=== PATIENT | female | born 1945 | race Caucasian/White ===

== ENCOUNTER 2018-09-30 05:50 | Inpatient (IN) | payer OTHER ==
[2018-09-30] MEDS ORDERED: ONDANSETRON 4 MG INJ IV (07:00)
[2018-09-30] MEDS ORDERED: NACL 0.9% 3 ML SYG IV (07:00)
[2018-09-30 07:46] LABS: ADD MAN DIFF? NO
[2018-09-30 07:52] LABS: WHITE BLOOD COUNT 6.7 10^3/ul (4.8-10.8)
[2018-09-30 07:52] LABS: BASOPHIL # 0.1 10^3/ul (0.0-0.1); BASOPHILS % 1.5 % (0.0-2.0); EOSINOPHILS # 0.5 10^3/ul (0.0-0.5); EOSINOPHILS % 7.6 % (0.0-7.0); HEMATOCRIT 36.5 % (37.0-47.0); HEMOGLOBIN 12.1 g/dl (12.0-16.0); LYMPHOCYTES # 1.8 10^3/ul (0.8-2.9); LYMPHOCYTES % 26.6 % (15.0-51.0); MEAN CORPUSCULAR HEMOGLOBIN 29.1 pg (29.0-33.0); MEAN CORPUSCULAR HGB CONC 33.2 g/dl (32.0-37.0); MEAN CORPUSCULAR VOLUME 87.7 fl (82.0-101.0); MEAN PLATELET VOLUME 9.4 fl (7.4-10.4); MONOCYTE # 0.7 10^3/ul (0.3-0.9); MONOCYTES % 10.2 % (0.0-11.0); NEUTROPHIL # 3.6 10^3/ul (1.6-7.5); PLATELET COUNT 278 10^3/UL (140-415); RED BLOOD COUNT 4.16 10^6/ul (4.20-5.40); RED CELL DISTRIBUTION WIDTH 12.4 % (11.5-14.5)
[2018-09-30 08:04] LABS: HEMOGLOBIN A1C 5.7 % (0-5.9)
[2018-09-30 08:13] LABS: ALANINE AMINOTRANSFERASE 18 IU/L (13-69); ALBUMIN/GLOBULIN RATIO 1.17; ALKALINE PHOSPHATASE 89 IU/L (42-121); ANION GAP 11 (5-13); ASPARTATE AMINO TRANSFERASE 21 IU/L (15-46); BILIRUBIN,INDIRECT 0.2 mg/dl (0-1.1); BILIRUBIN,TOTAL 0.2 mg/dl (0.2-1.3); BLOOD UREA NITROGEN 10 mg/dl (7-20); CARBON DIOXIDE 30 mmol/L (21-31); CHLORIDE 98 mmol/L (97-110); CHOL/HDL RATIO 6.7 RATIO; CHOLESTEROL 216 mg/dl (100-200); CREATININE 0.81 mg/dl (0.44-1.00); GLUCOSE 98 mg/dl (70-220); HDL CHOLESTEROL 32 mg/dl (33-92); LDL CHOLESTEROL,CALCULATED 157 mg/dl; MAGNESIUM 1.8 mg/dl (1.7-2.5); POTASSIUM 4.3 mmol/L (3.5-5.1); SODIUM 139 mmol/L (135-144); TOTAL PROTEIN 7.4 g/dl (6.1-8.1); TRIGLYCERIDES 135 mg/dl (0-149)
[2018-09-30] MEDS: ACCU-CHEK XX ×3 (09:55→20:08)
[2018-09-30] MEDS: SERTRALINE 50 MG TAB PO (10:46)
[2018-09-30] MEDS: TIMOLOL 0.5% 5 ML OPH RIGHT EYE ×2 (10:46→20:13)
[2018-09-30] MEDS: ASPIRIN 81 MG TAB PO (10:46)
[2018-09-30] MEDS: AMLODIPINE 5 MG TAB PO (10:47)
[2018-09-30] MEDS: LOSARTAN 50 MG TAB PO (10:47)
[2018-09-30] MEDS ORDERED: GLUCOSE GEL 15 GRAM TUBE PO ×2 (11:00)
[2018-09-30] MEDS ORDERED: GLUCOSE GEL 15 GRAM TUBE BUCCAL (11:00)
[2018-09-30] MEDS ORDERED: DEXTROSE 50% 50 ML SYRINGE IV (11:00)
[2018-09-30] MEDS ORDERED: GLUCAGON 1 MG INJ IM (11:00)
[2018-09-30] MEDS: INSULIN ASPART [NOVOLOG] 3 ML PEN SC ×3 (11:50→20:10)
[2018-09-30] MEDS: PANTOPRAZOLE (EC) 40 MG TAB PO (12:05)
[2018-09-30] MEDS: metFORMIN 850 MG TAB PO ×2 (12:05→20:12)
[2018-09-30 12:06] LABS: HEPATITIS B SURFACE ANTIGEN NEGATIVE (NEGATIVE)
[2018-09-30 12:24] LABS: HEPATITIS C VIRAL ANTIBODY NEGATIVE (NEGATIVE)
[2018-09-30] MEDS: ATORVASTATIN 20 MG TAB PO (20:12)
[2018-09-30 21:43] LABS: RAPID PLASMA REAGIN NONREACTIVE (NR)
[2018-10-01] MEDS: PANTOPRAZOLE (EC) 40 MG TAB PO (05:14)
[2018-10-01 06:11] LABS: ADD MAN DIFF? NO
[2018-10-01 06:21] LABS: BASOPHIL # 0.1 10^3/ul (0.0-0.1); BASOPHILS % 1.6 % (0.0-2.0); EOSINOPHILS # 0.5 10^3/ul (0.0-0.5); EOSINOPHILS % 8.4 % (0.0-7.0); HEMATOCRIT 34.9 % (37.0-47.0); HEMOGLOBIN 11.7 g/dl (12.0-16.0); LYMPHOCYTES # 1.8 10^3/ul (0.8-2.9); LYMPHOCYTES % 32.1 % (15.0-51.0); MEAN CORPUSCULAR HGB CONC 33.5 g/dl (32.0-37.0); MEAN CORPUSCULAR VOLUME 86.4 fl (82.0-101.0); MEAN PLATELET VOLUME 9.1 fl (7.4-10.4); MONOCYTE # 0.6 10^3/ul (0.3-0.9); NEUTROPHIL # 2.6 10^3/ul (1.6-7.5); NEUTROPHILS % 46.7 % (39.0-77.0); PLATELET COUNT 278 10^3/UL (140-415); RED BLOOD COUNT 4.04 10^6/ul (4.20-5.40); RED CELL DISTRIBUTION WIDTH 12.5 % (11.5-14.5)
[2018-10-01 06:21] LABS: WHITE BLOOD COUNT 5.5 10^3/ul (4.8-10.8)
[2018-10-01 07:02] LABS: ALANINE AMINOTRANSFERASE 16 IU/L (13-69); ALBUMIN 3.7 g/dl (3.3-4.9); ALBUMIN/GLOBULIN RATIO 1.12; ALKALINE PHOSPHATASE 89 IU/L (42-121); ANION GAP 12 (5-13); ASPARTATE AMINO TRANSFERASE 19 IU/L (15-46); BILIRUBIN,INDIRECT 0.1 mg/dl (0-1.1); BILIRUBIN,TOTAL 0.1 mg/dl (0.2-1.3); BLOOD UREA NITROGEN 14 mg/dl (7-20); CALCIUM 9.8 mg/dl (8.4-10.2); CARBON DIOXIDE 25 mmol/L (21-31); CHLORIDE 103 mmol/L (97-110); CREATININE 0.91 mg/dl (0.44-1.00); GLUCOSE 111 mg/dl (70-220); POTASSIUM 4.2 mmol/L (3.5-5.1); SODIUM 140 mmol/L (135-144)
[2018-10-01 07:16] LABS: MAGNESIUM 1.8 mg/dl (1.7-2.5)
[2018-10-01 07:43] LABS: ERYTHROCYTE SEDIMENTATION RATE 40 mm/Hr (0-30)
[2018-10-01] MEDS: INSULIN ASPART [NOVOLOG] 3 ML PEN SC ×4 (07:55→20:08)
[2018-10-01] MEDS: ACETAMINOPHEN 325 MG TAB PO (08:14)
[2018-10-01] MEDS: SERTRALINE 50 MG TAB PO (08:14)
[2018-10-01] MEDS: ASPIRIN 81 MG TAB PO (08:14)
[2018-10-01] MEDS: metFORMIN 850 MG TAB PO ×2 (08:14→20:09)
[2018-10-01] MEDS: AMLODIPINE 5 MG TAB PO (08:15)
[2018-10-01] MEDS: LOSARTAN 50 MG TAB PO (08:15)
[2018-10-01] MEDS: TIMOLOL 0.5% 5 ML OPH RIGHT EYE ×2 (08:19→20:09)
[2018-10-01] MEDS: METOPROLOL (XL) 25 MG TAB PO (09:23)
[2018-10-01] MEDS: ACCU-CHEK XX ×3 (09:55→20:08)
[2018-10-01] MEDS: CELECOXIB 100 MG CAP PO ×2 (17:34→20:09)
[2018-10-01] MEDS: ATORVASTATIN 20 MG TAB PO (20:09)
[2018-10-02] MEDS: PANTOPRAZOLE (EC) 40 MG TAB PO (05:48)
[2018-10-02] MEDS: INSULIN ASPART [NOVOLOG] 3 ML PEN SC ×4 (07:42→20:40)
[2018-10-02] MEDS: ASPIRIN 81 MG TAB PO (08:51)
[2018-10-02] MEDS: SERTRALINE 50 MG TAB PO (08:51)
[2018-10-02] MEDS: metFORMIN 850 MG TAB PO ×2 (08:51→20:38)
[2018-10-02] MEDS: AMLODIPINE 5 MG TAB PO ×2 (08:53→20:39)
[2018-10-02] MEDS: METOPROLOL (XL) 25 MG TAB PO (08:53)
[2018-10-02] MEDS: LOSARTAN 50 MG TAB PO (08:54)
[2018-10-02] MEDS: CELECOXIB 100 MG CAP PO ×2 (08:54→20:39)
[2018-10-02] MEDS: TIMOLOL 0.5% 5 ML OPH RIGHT EYE ×2 (08:54→20:40)
[2018-10-02] MEDS: ACCU-CHEK XX ×3 (10:00→20:39)
[2018-10-02] MEDS: ATORVASTATIN 20 MG TAB PO (20:38)
[2018-10-03] MEDS: PANTOPRAZOLE (EC) 40 MG TAB PO (06:52)
[2018-10-03] MEDS: DEXTROSE 50% 50 ML SYRINGE IV (07:37)
[2018-10-03] MEDS: INSULIN ASPART [NOVOLOG] 3 ML PEN SC ×4 (07:56→20:33)
[2018-10-03] MEDS: ASPIRIN 81 MG TAB PO (08:10)
[2018-10-03] MEDS: AMLODIPINE 5 MG TAB PO ×2 (08:10→20:35)
[2018-10-03] MEDS: CELECOXIB 100 MG CAP PO ×2 (08:10→20:34)
[2018-10-03] MEDS: LOSARTAN 50 MG TAB PO (08:11)
[2018-10-03] MEDS: SERTRALINE 50 MG TAB PO (08:11)
[2018-10-03] MEDS: METOPROLOL (XL) 25 MG TAB PO (08:11)
[2018-10-03] MEDS: metFORMIN 850 MG TAB PO ×2 (08:12→20:34)
[2018-10-03] MEDS: TIMOLOL 0.5% 5 ML OPH RIGHT EYE ×2 (08:12→20:35)
[2018-10-03] MEDS: ACCU-CHEK XX (10:50)
[2018-10-03] MEDS: ATORVASTATIN 20 MG TAB PO (20:34)
[2018-10-04] MEDS: PANTOPRAZOLE (EC) 40 MG TAB PO (06:26)
[2018-10-04] MEDS: INSULIN ASPART [NOVOLOG] 3 ML PEN SC ×2 (07:55→11:33)
[2018-10-04] MEDS: CELECOXIB 100 MG CAP PO (08:18)
[2018-10-04] MEDS: metFORMIN 850 MG TAB PO (08:18)
[2018-10-04] MEDS: LOSARTAN 50 MG TAB PO (08:18)
[2018-10-04] MEDS: ASPIRIN 81 MG TAB PO (08:18)
[2018-10-04] MEDS: SERTRALINE 50 MG TAB PO (08:19)
[2018-10-04] MEDS: METOPROLOL (XL) 25 MG TAB PO (08:19)
[2018-10-04] MEDS: AMLODIPINE 5 MG TAB PO (08:19)
[2018-10-04] MEDS: TIMOLOL 0.5% 5 ML OPH RIGHT EYE (08:20)
== END 2018-10-04 16:20 | disposition home or self-care (01) | DRG 69 ==
LOC: TEL 05:50
DX: G45.9 Transient cerebral ischemic attack, unspecified (principal); M48.02 Spinal stenosis, cervical region; I10 Essential (primary) hypertension; D32.9 Benign neoplasm of meninges, unspecified; H40.9 Unspecified glaucoma; R53.1 Weakness
CPT/HCPCS: 70553; 72141; 76705; 80053; 80061; 82962; 83036; 83735; 84443; 85025; 85651; 86592; 86803; 87340; 93306; 93880; 97110; 97116; 97161; 97166; 97530; 99217; G0378